=== PATIENT | female | born 1995 | race Caucasian/White ===

== ENCOUNTER 2017-10-04 22:36 | Emergency (ER) | payer OTHER, BC ==
[2017-10-04] MEDS ORDERED: IBUPROFEN 600 MG TABLET PO ONE (22:42)
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
== END 2017-10-04 23:21 | disposition home or self-care (01) ==
LOC: ER 22:36
DX: S90.01XA Contusion of right ankle, initial encounter (principal); W00.2XXA Other fall from one level to another due to ice and snow, initial encounter; Y92.410 Unspecified street and highway as the place of occurrence of the external cause
CPT/HCPCS: 99283

== ENCOUNTER 2017-12-01 17:35 | Emergency (ER) | payer BC, OTHER ==
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
== END 2017-12-01 18:43 | disposition home or self-care (01) ==
LOC: ER 17:35
DX: S06.0X0A Concussion without loss of consciousness, initial encounter (principal); S16.1XXA Strain of muscle, fascia and tendon at neck level, initial encounter; R11.2 Nausea with vomiting, unspecified; R51 Headache; F17.210 Nicotine dependence, cigarettes, uncomplicated; V47.5XXA Car driver injured in collision with fixed or stationary object in traffic accident, initial encounter
CPT/HCPCS: 70450; 72050; 99283; 99284